=== PATIENT | male | born 1990 | race Caucasian/White ===

== ENCOUNTER 2021-07-24 20:58 | Emergency (ER) | payer SELFPAY ==
[~2021-07-24] VITALS: Ht 205.7 cm; Wt 114.1 kg
--- NOTE | 2021-07-24 21:01 | PHYS DOC ---
Past History Past Medical History: GERD Smoking: Cigarettes General Adult EDM: Chief Complaint: CHEST PAIN HPI: HPI: ".. I got chest pain.. or upper abdomen pain.. it been constant since I ate some tacos earlier.. " Patient is a 30 year old male who presents with above hx and complaints. Epigastric and chest pain last couple hours. Patient denies any intake of bad food. No history of gallbladder disease. No history of cardiac disorders. Does have history of GERD. No recent travel. No specific ill contacts. No history immunosuppression. Patient does smoke. Review of Systems: Review of Systems: Constitutional: Denies fever or chills Eyes: Denies change in visual acuity HENT: Denies nasal congestion or sore throat Respiratory: Denies cough or shortness of breath Cardiovascular: Complains of epigastric chest pain GI: Complains of epigastric abdominal pain, nausea,. Denies vomiting, bloody stools or diarrhea : Denies dysuria Musculoskeletal: Denies back pain or joint pain Integument: Denies rash Neurologic: Denies headache, focal weakness or sensory changes Endocrine: Denies polyuria or polydipsia Lymphatic: Denies swollen glands Psychiatric: Denies depression or anxiety Family History: Family History: Noncontributory to presentation. When people develop heart problems in the family of such grandfather they were in their 90s. Current Medications: Current Meds: See nursing for home meds Allergies: Allergies: No known drug allergies Physical Exam: PE: Constitutional: Well developed, well nourished, no acute distress, non-toxic appearance. [] HENT: Normocephalic, atraumatic, bilateral external ears normal, oropharynx moist, no oral exudates, nose normal. [] Eyes: PERRLA, EOMI, conjunctiva normal, no discharge. [] Neck: Normal range of motion, no tenderness, supple, no stridor. [] Cardiovascular:Heart rate regular rhythm, no murmur [] Lungs & Thorax: Bilateral breath sounds, scattered wheezes. Auscultation [] Abdomen: Bowel sounds normal, soft, epigastric tenderness, no masses, no pulsatile masses. [] Rebound epigastric area Skin: Warm, dry, no erythema, no rash. [] Back: No tenderness, no CVA tenderness. [] Extremities: No tenderness, no cyanosis, no clubbing, ROM intact, no edema. [] No psoas. No cording appreciated. Neurologic: Alert and oriented X 3, normal motor function, normal sensory function, no focal deficits noted. [] Psychologic: Affect anxious, judgement normal, mood normal. [] EKG: EKG: My interpretation EKG shows a sinus rhythm at 70 bpm. No acute morphology. Time of this EKG is 2104 hrs. [] Radiology/Procedures: Radiology/Procedures: [facility] [address] [place] [id number] IMAGING REPORT Signed PATIENT: MASON RIVAS ACCOUNT: [id number] : 1990 LOCATION: ER AGE: 30 SEX: M EXAM STATUS: REG ER ORD. PHYSICIAN: JAIME VARNER MD REASON: epigastic pain Omni 300 75cc PROCEDURE: CT ABDOMEN W/CONTRAST CT scan of the abdomen with contrast 07/24/2021 CLINICAL HISTORY: Epigastric pain. TECHNIQUE: After the oral and intravenous administration of contrast, contiguous, 5 mm axial sections were obtained through the abdomen. 75 cc of Omnipaque 300 were administered intravenously during this examination. One or more of the following individualized dose reduction techniques were utilized for this study: 1. Automated exposure control. 2. Adjustment of the mA and/or kV according to patient size. 3. Use of iterative reconstruction technique. FINDINGS: Comparison is made to an acute abdominal series performed earlier today. Images of the lung bases demonstrate minimal dependent subsegmental atelectasis bilaterally. A 6 mm low-attenuation lesion is seen involving the right lower liver which likely represents a hepatic cyst. The spleen, pancreas, adrenal glands and kidneys are within normal limits. The abdominal aorta tapers normally. The appendix is well-visualized and is within normal limits. The gallbladder is slightly contracted. No free fluid or free air is seen within the abdomen. There is no evidence of bowel obstruction. Very mild S-shaped curvature of the thoracolumbar spine is seen. IMPRESSION: No acute abnormality is seen. Electronically signed by: Fernando Garcia MD (07/25/2021 12:04 AM) [id number] DICTATED AND SIGNED BY: FERNANDO GARCIA MD DATE: 07/24/21 [id number] CC: SRINIVAS GEORGE MD; JAIME VARNER MD ~MTH0 0 [][place] [id number] IMAGING REPORT Signed PATIENT: MASON RIVAS ACCOUNT: [id number] : 1990 LOCATION: ER AGE: 30 SEX: M EXAM STATUS: REG ER ORD. PHYSICIAN: JAIME VARNER MD REASON: Right sided upper abdomen pain. Hemorrhoid removal today PROCEDURE: ACUTE ABDOMEN SERIES Exam: Acute abdominal series INDICATION: Right-sided upper abdominal pain TECHNIQUE: Frontal view of chest with upright and supine views of the abdomen Comparisons: None FINDINGS: The cardiomediastinal silhouette and pulmonary vessels are within normal limits. The lung and pleural spaces are clear. Air and stool are noted throughout the colon to level the rectum in a nonobstructive bowel gas pattern. No suspicious masses or calcifications. Visualized osseous structures are unremarkable. IMPRESSION: 1. No acute cardiopulmonary process. 2. Nonobstructive bowel gas pattern. Electronically signed by: Magdy Helton MD (07/24/2021 9:55 PM) [facility] DICTATED AND SIGNED BY: MAGDY HELTON MD DATE: 07/24/212153 CC: SRINIVAS GEORGE MD; JAIME VARNER MD ~MTH0 0 Heart Score: C/O Chest Pain: Yes HEART Score for Chest Pain: HEART Score for Chest Pain Response (Comments) Value History Slighlty/Non-Suspicious 0 ECG Normal 0 Age < 45 0 Risk Factors 1 or 2 Risk Factors 1 Troponin < Normal Limit 0 Total 1 Risk Factors: Risk Factors: DM, Current or recent (<one month) smoker, HTN, HLP, family history of CAD, obesity. Risk Scores: Score 0 - 3: 2.5% MACE over next 6 weeks - Discharge Home Score 4 - 6: 20.3% MACE over next 6 weeks - Admit for Clinical Observation Score 7 - 10: 72.7% MACE over next 6 weeks - Early Invasive Strategies Course & Med Decision Making: Course & Med Decision Making Pertinent Labs and Imaging studies reviewed. (See chart for details) Patient stay on a clear fluid diet only next 48 hours. No solids. No milk products. Follow-up primary care. Take Pepcid 20 mg twice a day. Follow-up primary. Stop smoking. Impression: 1. Gastritis 2. GERD 3. Biliary colic [] Dragon Disclaimer: Dragon Disclaimer: This electronic medical record was generated, in whole or in part, using a voice recognition dictation system. Departure Departure: Referrals: SRINIVAS GEORGE MD (PCP) Scripts Famotidine (PEPCID) 20 Mg Tablet 1 TAB PO BID for gerd, #60 TAB 3 Refills Prov: JAIME VARNER MD 07/25/21 Kristyn Disclaimer This chart was dictated in whole or in part using Voice Recognition software in a busy, high-work load, and often noisy Emergency Department environment. It may contain unintended and wholly unrecognized errors or omissions. JAIME VARNER MD Jul 24, 2021 21:01
[2021-07-24] MEDS ORDERED: SUCRALFATE 1 GM TABLET. PO ONE (21:15)
[2021-07-24] MEDS ORDERED: MAGNESIUM HYDROXIDE 2,400 MG/30 ML ORAL.SUSP. PO ONE (21:15)
[2021-07-24] MEDS ORDERED: IV RINGERS SOLUTION,LACTATED 1,000 ML IV SCH (21:15)
[2021-07-24 21:44] LABS: BASO # 0.1 x10^3/uL (0.0-0.2); BASO % 1 % (0-3); EOS # 0.4 x10^3/uL (0.0-0.7); EOS % 3 % (0-3); HEMATOCRIT 42.3 % (39.0-53.0); LYMPH # 4.9 x10^3/uL (1.0-4.8); LYMPH % 35 % (24-48); MEAN CORPUSCULAR HEMOGLOBIN 29 pg (25-35); MEAN CORPUSCULAR HGB CONC 33 g/dL (31-37); MEAN CORPUSCULAR VOLUME 88 fL (79-100); MONO # 1.5 x10^3/uL (0.0-1.1); MONO % 11 % (0-9); NEUT # 7.1 x10^3uL (1.8-7.7); NEUT % 51 % (31-73); PLATELET COUNT 309 x10^3/uL (140-400); RED BLOOD COUNT 4.78 x10^6/uL (4.30-5.70); RED CELL DISTRIBUTION WIDTH 14.8 % (11.5-14.5)
[2021-07-24] MEDS ORDERED: FAMOTIDINE 20 MG/2 ML VIAL IVP ONE (21:45)
[2021-07-24 21:52] LABS: CALCIUM 9.2 mg/dL (8.5-10.1); GFR 87.2; POTASSIUM 3.3 mmol/L (3.5-5.1)
--- NOTE | 2021-07-24 21:57 | RAD ---
Exam: Acute abdominal series INDICATION: Right-sided upper abdominal pain TECHNIQUE: Frontal view of chest with upright and supine views of the abdomen Comparisons: None FINDINGS: The cardiomediastinal silhouette and pulmonary vessels are within normal limits. The lung and pleural spaces are clear. Air and stool are noted throughout the colon to level the rectum in a nonobstructive bowel gas patter n. No suspicious masses or calcifications. Visualized osseous structures are unremarkable. IMPRESSION: 1. No acute cardiopulmonary process. 2. Nonobstructive bowel gas pattern. Electronically signed by: Magdy Bailey MD (07/24/2021 9:55 PM) [facility]
[2021-07-24 22:07] LABS: ALBUMIN 4.1 g/dL (3.4-5.0); DIRECT BILIRUBIN 0.1 mg/dL (0.0-0.2); MAGNESIUM 2.1 mg/dL (1.8-2.4); TOTAL BILIRUBIN 0.4 mg/dL (0.2-1.0); TOTAL PROTEIN 7.7 g/dL (6.4-8.2)
[2021-07-24] MEDS ORDERED: IOHEXOL 240 MG/ML 50ML VIAL. ONE (22:34)
[2021-07-24] MEDS ORDERED: CONTRAST GIVEN. MC PRN (22:45)
--- NOTE | 2021-07-24 22:58 | EKG ---
[address] [address] Test Date: 2021-07-24 Test Time: 21:04:05 Pat Name: MASON RIVAS Department: Room: Gender: M Fluid Dynamicist: TIM : 1990 Requested By: JAIME VARNER Order Number: [id number] Reading MD: Kervin Kaiser MD Measurements Intervals [place] Rate: 70 P: 64 LA: 160 QRS: 57 QRSD: 88 T: 53 QT: 388 QTc: 422 Interpretive Statements SINUS RHYTHM Electronically Signed On 07-25-2021 11:55:03 CDT by Kervin Kaiser MD
[2021-07-24] MEDS ORDERED: IOHEXOL 300 MG/ML 75 ML VIAL. IV ONE (23:00)
--- NOTE | 2021-07-25 00:06 | RAD ---
CT scan of the abdomen with contrast 07/24/2021 CLINICAL HISTORY: Epigastric pain. TECHNIQUE: After the oral and intravenous administration of contrast, contiguous, 5 mm axial sections were obtained through the abdomen. 75 cc of Omnipaque 300 were administered intravenously during thi s examination. One or more of the following individualized dose reduction techniques were utilized for this study: 1. Automated exposure control. 2. Adjustment of the mA and/or kV according to patient size. 3. Use of iterative reconstruction technique. FINDINGS: Comparison is made to an acute abdominal series performed earlier today. Images of the lung bases demonstrate minimal dependent subsegmental atelectasis bilaterally. A 6 mm low-attenuation lesion is seen involving the right lower liver which likely represents a hepat ic cyst. The spleen, pancreas, adrenal glands and kidneys are within normal limits. The abdominal aorta tapers normally. The appendix is well-visualized and is within normal limits. The gallbladder is slightly contracted. No free fluid or free air is seen within the abdomen. There is n o evidence of bowel obstruction. Very mild S-shaped curvature of the thoracolumbar spine is seen. IMPRESSION: No acute abnormality is seen. Electronically signed by: Fernando Garcia MD (07/25/2021 12:04 AM) [id number]
[2021-07-25] MEDS ORDERED: FAMO-63 PO (00:30)
[2021-07-25 00:44] VITALS: BP 134/72
== END 2021-07-25 00:55 | disposition home or self-care (01) ==
LOC: ER 20:58
DX: K29.70 Gastritis, unspecified, without bleeding (principal); K21.9 Gastro-esophageal reflux disease without esophagitis; K80.50 Calculus of bile duct without cholangitis or cholecystitis without obstruction; F17.210 Nicotine dependence, cigarettes, uncomplicated
CPT/HCPCS: 36415; 74022; 74160; 80048; 80076; 82150; 82550; 83690; 83735; 83880; 84484; 85025; 93005; 96361; 96374; 99285; G0480; J3490; J7120; Q9967